=== PATIENT | male | born 1980 | race Caucasian/White ===

== ENCOUNTER 2020-07-30 18:07 | Emergency (ER) | payer BC, SELFPAY ==
--- NOTE | ~2020-07-30 | XR_ITS ---
EXAMINATION: XR elbow RT min 3V DATE: 07/30/2020 18:34 INDICATION: Right elbow injury. TECHNIQUE: 4 views of right elbow were obtained. COMPARISON: None. FINDINGS: There is a nondisplaced fracture of radial head. Joint spaces are normal. There is a large elbow joint effusion. IMPRESSION: 1. Nondisplaced fracture of radial head. 2. Large elbow joint effusion. Reviewed, dictated and finalized at location A. [facility]
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
[2020-07-30 18:18] VITALS: BP 152/104; PULSE 90; RESP 20; TEMP 37.2; O2SAT 99
== END 2020-07-30 18:55 | disposition home or self-care (01) ==
PROVIDERS: Emergency Provider Nurse Practitioner
DX: S52.124A Nondisplaced fracture of head of right radius, initial encounter for closed fracture (principal); V18.4XXA Pedal cycle driver injured in noncollision transport accident in traffic accident, initial encounter; M25.422 Effusion, left elbow; I25.10 Atherosclerotic heart disease of native coronary artery without angina pectoris; I10 Essential (primary) hypertension
CPT/HCPCS: 29105; 73080; 99214; A4565; G0463